=== PATIENT | male | born 1960 | race Caucasian/White ===

== ENCOUNTER 2016-10-26 21:20 | Inpatient (IN) | payer BC ==
[~2016-10-26] VITALS: Ht 182.9 cm; Wt 130.9 kg
[~2016-10-26 21:20] MED LIST: ACETAMINOPHN-T1 EACH PO; ATORVASTATIN CA80 MG PO; COUMADIN5 MG PO; FISH OIL 1,0001 EAC7 PO; GEMFIBROZIL600 MG PO; GLIPIZIDE10 MG PO; HYDROCODON-ACE1 EAC7 PO; METFORMIN HCL850 MG PO; METOPROLOL SUCC50 MG PO; NIACIN500 M1 PO; RAMIPRIL2.5 MG PO
[2016-10-26 21:47] LABS: HEMATOCRIT 39.2 % (38.0-50.0); MCH 32.1 PG (29.0-34.0); MCHC 32.9 G/DL (30.0-36.0); MCV 97.5 FL (86-99); MEAN PLAT.VOLUME 9.4 uM^3 (9.0-12.4); PLATELET COUNT 221 K/uL (156-360); RBC DIS.WIDTH-CV 14.7 % (11.8-14.6); RBC DIS.WIDTH-SD 52.9 % (39-53); RED BLOOD COUNT 4.02 M/uL (4.00-5.50); WHITE BLOOD COUNT 5.3 K/uL (4.1-10.2)
[2016-10-26 21:48] LABS: CARBON DIOXIDE (BICARBONATE) 25.7 MEQ/L (20-31)
[2016-10-26 22:01] LABS: CHLORIDE 111 mEq/L (99-109); POTASSIUM 4.1 mEq/L (3.7-5.4); SODIUM 143 mEq/L (136-147)
[2016-10-26 22:02] LABS: D-DIMER ELISA < 150.00 ng/mLDDU (<230); GLUCOSE 213 mg/dL (70-99)
[2016-10-26 22:04] LABS: ANION GAP 11 MEQ/L (2-14)
[2016-10-26 22:06] LABS: GFR ESTIMATE (CALCULATED) > 59 mL/min/
[2016-10-26 22:07] LABS: UREA NITROGEN (BUN) 14 mg/dL (9-23)
[2016-10-26 22:09] LABS: TROP-I INTERPRETATION NEGATIVE; TROPONIN-I 0.06 ng/mL (0.0-0.30)
[2016-10-26 22:43] LABS: TOTAL BILIRUBIN 1.2 mg/dL (0.0-1.0)
[2016-10-26 22:44] LABS: ALKALINE PHOSPHATASE 40 IU/L (3-129)
[2016-10-26 22:47] LABS: DIRECT BILIRUBIN 0.4 mg/dL (0.0-0.3)
[2016-10-26 22:48] LABS: LIPASE 25 U/L (1.0-51.0)
[2016-10-27] VITALS (7 sets, daily range): BP systolic 98–147; BP diastolic 53–99
[2016-10-27 05:34] LABS: HEMATOCRIT 35.1 % (38.0-50.0); MCH 31.2 PG (29.0-34.0); MCHC 31.3 G/DL (30.0-36.0); MCV 99.4 FL (86-99); MEAN PLAT.VOLUME 9.9 uM^3 (9.0-12.4); PLATELET COUNT 175 K/uL (156-360); RED BLOOD COUNT 3.53 M/uL (4.00-5.50); WHITE BLOOD COUNT 4.7 K/uL (4.1-10.2)
[2016-10-27 05:52] LABS: TROP-I INTERPRETATION NEGATIVE; TROPONIN-I 0.04 ng/mL (0.0-0.30)
[2016-10-27 06:05] LABS: ALKALINE PHOSPHATASE 32 IU/L (3-129); ANION GAP 9 MEQ/L (2-14); CHLORIDE 111 MEQ/L (99-109); GFR ESTIMATE (CALCULATED) > 59 mL/min/; GLUCOSE 227 mg/dL (70-99); POTASSIUM 4.2 MEQ/L (3.7-5.4); SAMPLE HEMOLYSIS CHECK 0; SAMPLE ICTERIC CHECK 0; SAMPLE LIPEMIA CHECK 0; SODIUM 143 MEQ/L (136-147); TOTAL BILIRUBIN 0.9 MG/DL (0.0-1.0); UREA NITROGEN (BUN) 17 mg/dL (9-23)
[2016-10-27 08:07] LABS: POINT-OF-CARE METER ID UU13113698
[2016-10-27] MEDS ORDERED: COUMADIN2 MG PO (08:27)
[2016-10-27 11:51] LABS: POINT-OF-CARE METER ID UU13113698
[2016-10-27 12:27] LABS: INTER. NORMALIZED RATIO 3.1
[2016-10-27 12:46] LABS: TROP-I INTERPRETATION NEGATIVE; TROPONIN-I 0.04 ng/mL (0.0-0.30)
[2016-10-27 16:11] LABS: POINT-OF-CARE METER ID UU13113698
[2016-10-27 20:46] LABS: POINT-OF-CARE METER ID UU13113698
[2016-10-28 04:32] VITALS: BP 93/56
[2016-10-28 05:15] LABS: HEMATOCRIT 36.3 % (38.0-50.0); MCH 31.4 PG (29.0-34.0); MCV 98.4 FL (86-99); PLATELET COUNT 223 K/uL (156-360); RBC DIS.WIDTH-SD 54.2 % (39-53); RED BLOOD COUNT 3.69 M/uL (4.00-5.50); WHITE BLOOD COUNT 6.9 K/uL (4.1-10.2)
[2016-10-28 05:22] LABS: INTER. NORMALIZED RATIO 2.7; PROTHROMBIN TIME 30.8 SEC (10.2-12.9)
[2016-10-28 05:42] LABS: ANION GAP 8 MEQ/L (2-14); CHLORIDE 106 MEQ/L (99-109); GFR ESTIMATE (CALCULATED) > 59 mL/min/; GLUCOSE 160 mg/dL (70-99); POTASSIUM 4.6 MEQ/L (3.7-5.4); SAMPLE HEMOLYSIS CHECK 0; SAMPLE ICTERIC CHECK 0; SAMPLE LIPEMIA CHECK 0; SODIUM 139 MEQ/L (136-147); UREA NITROGEN (BUN) 19 mg/dL (9-23)
[2016-10-28 07:44] LABS: POINT-OF-CARE METER ID UU13113781
[2016-10-28 08:00] VITALS: BP 100/81
[2016-10-28] MEDS ORDERED: LASIX20 MG PO (10:44)
[2016-10-28] MEDS ORDERED: ASPIR-LOW81 MG PO (10:44)
[2016-10-28 11:58] VITALS: BP 107/71
== END 2016-10-28 13:00 | disposition home or self-care (01) | DRG 293 ==
LOC: EME 21:20 → ENRESERV 10-27 01:01 → EDOF 10-27 01:02 → 4EAST 10-27 01:02 → ENRESERV 10-27 01:15 → 4EAST 10-27 01:43
PROVIDERS: Emergency Medicine; Internal Medicine; Internal Medicine Cardiovascular Disease
DX: I11.0 Hypertensive heart disease with heart failure (principal); I50.21 Acute systolic (congestive) heart failure; R07.9 Chest pain, unspecified; I48.0 Paroxysmal atrial fibrillation; I25.5 Ischemic cardiomyopathy; I25.10 Atherosclerotic heart disease of native coronary artery without angina pectoris; G47.33 Obstructive sleep apnea (adult) (pediatric); E78.5 Hyperlipidemia, unspecified; E78.00 Pure hypercholesterolemia, unspecified; E11.9 Type 2 diabetes mellitus without complications; M17.0 Bilateral primary osteoarthritis of knee; Z96.652 Presence of left artificial knee joint; E66.9 Obesity, unspecified; Z68.39 Body mass index [BMI] 39.0-39.9, adult; Z79.01 Long term (current) use of anticoagulants; Z79.84 Long term (current) use of oral hypoglycemic drugs; I25.2 Old myocardial infarction; Z95.5 Presence of coronary angioplasty implant and graft; Z87.891 Personal history of nicotine dependence
CPT/HCPCS: 71020; 71250; 76705; 80048; 80053; 80076; 82803; 82948; 83605; 83690; 83880; 84484; 85027; 85379; 85610; 87040; 93005; 93306; 94640; 99281; 99285; J1815; J1885; J1940; J7030